=== PATIENT | male | born 1975 | race Two or more races ===

== ENCOUNTER 2019-07-10 18:16 | Emergency (ER) | payer BC, MEDICAID ==
[~2019-07-10] VITALS: Ht 172.7 cm; Wt 95.3 kg
[2019-07-10] MEDS ORDERED: MORPHINE SULF INJ 2 MG/ML SYRINGE 1ML IV ONE (20:00)
[2019-07-10] MEDS ORDERED: ONDANSETRON HCL 4 MG/2 ML VIAL IV ONE (20:00)
[2019-07-10 21:54] LABS: Basophils # (auto) 0 uL; Basophils % (auto) 0.3 % (0.0-2.0); Eosinophils # (auto) 0 uL; Eosinophils % (auto) 0.3 % (0.0-7.0); Hematocrit 45.7 % (41.0-53.0); Hemoglobin 15.8 g/dL (13.5-17.5); Lymphocytes # (auto) 1.5 uL; Lymphocytes % (auto) 11.9 % (10.0-50.0); Mean Corpuscular Hemoglobin 31.1 pg (28.0-32.0); Mean Corpuscular Hgb Conc. 34.6 g/dL (32.0-36.0); Monocytes # (auto) 0.9 uL; Monocytes % (auto) 7.4 % (0.0-12.0); Neutrophils # (auto) 9.8 uL; Neutrophils % (auto) 80.1 % (37.0-80.0); Platelet Count (auto) 269 10^3/uL (140-450); Red Blood Cells 5.08 10^6/uL (4.5-5.90); Red Cell Distribution Width 12.8 % (11.8-14.3); White Blood Cell 12.3 10^3/uL (4.4-10.8)
[2019-07-10 21:56] LABS: INR < 0.93 (0.9-1.15); Partial Thromboplastin Time 26.1 sec (23.64-32.05)
[2019-07-10 22:01] LABS: Amylase 55 U/L (25-115); Lipase 129 U/L (73-393)
[2019-07-10 22:03] LABS: Chloride 106 mmol/L (98-107); Potassium 3.3 mmol/L (3.5-5.1); Sodium 139 mmol/L (136-145)
[2019-07-10 22:16] LABS: Alanine Aminotransferase 182 U/L (16-61); Albumin 3.9 g/dL (3.4-5.0); Alkaline Phosphatase 134 U/L (45-117); Anion Gap 9 (5-15); Aspartate Aminotransferase 321 U/L (15-37); BUN/Creatinine Ratio 13.5; Bilirubin, Total 0.7 mg/dL (0.2-1.0); Blood Urea Nitrogen 13 mg/dL (7-18); Calcium 8.6 mg/dL (8.5-10.1); Carbon Dioxide 24 mmol/L (21-32); GFR African American 109 mL/min; GFR Non-African American 90 mL/min; Glucose 101 mg/dL (74-106)
[2019-07-11 01:42] VITALS: BP 122/55
== END 2019-07-11 02:09 | disposition home or self-care (01) ==
LOC: ER 18:19
DX: K80.10 Calculus of gallbladder with chronic cholecystitis without obstruction (principal); Z87.891 Personal history of nicotine dependence
CPT/HCPCS: 36415; 71045; 76705; 80053; 82150; 83690; 84484; 85025; 85379; 85610; 85730; 93005; 96374; 96375; 99284; J2270; J2405